=== PATIENT | male | born 1955 | race Caucasian/White ===

== ENCOUNTER → 2016-09-20 | Outpatient (REF) | LOC: WSOH 12:29 | DX: Z02.89 Encounter for other administrative examinations (principal) ==

== ENCOUNTER → 2016-10-06 | Outpatient (REF) | LOC: WSOH 10-05 10:28 | DX: Z00.00 Encounter for general adult medical examination without abnormal findings (principal) ==

== ENCOUNTER → 2018-12-28 | Outpatient (CLI) | payer SELFPAY | LOC: COL.VAS 12:08 | DX: M79.81 Nontraumatic hematoma of soft tissue (principal); M79.89 Other specified soft tissue disorders ==